=== PATIENT | male | born 1985 | race Caucasian/White ===

== ENCOUNTER 2019-04-05 14:42 | Emergency (ER) | payer OTHER ==
[~2019-04-05] VITALS: Ht 177.8 cm; Wt 111.1 kg
[~2019-04-05 14:42] MED LIST: BISA5EC PO; CIPR.3TO RIGHTEYE; CYCL10 PO; ERYT.5TO OD; MAGCIT300 PO; NAPR500 PO; NAPR550 PO; OXYACE5T PO; RXCYCL10 PO
[2019-04-05] MEDS ORDERED: INCARCERATION (14:47)
== END 2019-04-05 14:52 ==
LOC: ER 14:42
DX: F11.10 Opioid abuse, uncomplicated (principal)
CPT/HCPCS: 99283

== ENCOUNTER 2024-04-15 20:02 | Emergency (ER) | payer OTHER ==
[~2024-04-15] VITALS: Ht 172.7 cm; Wt 113.4 kg
[~2024-04-15 20:02] MED LIST changes: +INCARCERATION
[2024-04-15 20:13] VITALS: BP 154/86
[2024-04-15] MEDS ORDERED: Clindamycin HCl 150 MG Cap PO ONE (20:40)
[2024-04-15] MEDS ORDERED: Cleocin HCl150 MG PO (20:42)
== END 2024-04-15 20:50 | disposition home or self-care (01) ==
LOC: ER 20:02
DX: L03.115 Cellulitis of right lower limb (principal); I87.8 Other specified disorders of veins; Z88.5 Allergy status to narcotic agent
CPT/HCPCS: 99282; A9270